=== PATIENT | female | born 1990 | race African-American/Black ===

== ENCOUNTER 2016-05-03 23:54 | Emergency (ER) | payer OTHER ==
[~2016-05-03] VITALS: Ht 157.5 cm; Wt 82.7 kg
[~2016-05-03 23:54] MED LIST: AMOXICILLIN500 MG PO; BACTRIM DS1 TAB PO; FIORICET PO; FLEXERIL PO; FLEXERIL5 M1 PO; HYDROCHLOROT25 MG PO; NAPROSYN375 MG PO; NAPROSYN500 MG PO; PENICILLN VK500 MG PO; TAM75CAP PO
[2016-05-04 00:09] VITALS: BP 131/92
== END 2016-05-04 04:40 | disposition left against medical advice (07) | DRG 951 ==
LOC: ED 23:54 → LWOBS 05-04 04:40
DX: Z91.19 Patient's noncompliance with other medical treatment and regimen (principal)

== ENCOUNTER 2017-05-19 22:37 | Emergency (ER) | payer OTHER ==
[~2017-05-19] VITALS: Ht 157.5 cm; Wt 82.8 kg
[2017-05-20] MEDS ORDERED: BENADRYL 50MG C50 MG PO (01:01)
[2017-05-20 01:29] VITALS: BP 120/82
== END 2017-05-20 01:29 | disposition home or self-care (01) | DRG 607 ==
LOC: ED 22:37
DX: R21 Rash and other nonspecific skin eruption (principal); L29.9 Pruritus, unspecified

== ENCOUNTER 2017-05-30 20:28 | Emergency (ER) | payer OTHER ==
[~2017-05-30] VITALS: Ht 157.5 cm; Wt 82.6 kg
[~2017-05-30 20:28] MED LIST changes: +BENADRYL 50MG C50 MG PO
[2017-05-30] MEDS ORDERED: IMITREX100 MG PO (20:41)
[2017-05-30] MEDS ORDERED: TRAZODONE50 MG PO (20:42)
[2017-05-30 21:26] LABS: URINE BILIRUBIN - DIPSTICK NEGATIVE (NEGATIVE); URINE BLOOD DIPSTICK NEGATIVE (NEGATIVE); URINE COLOR YELLOW; URINE GLUCOSE - DIPSTICK NEGATIVE (NEGATIVE); URINE KETONE NEGATIVE (NEGATIVE); URINE LEUK ESTERASE NEGATIVE (NEGATIVE); URINE NITRITE - DIPSTICK NEGATIVE (Negative); URINE PROTEIN - DIPSTICK NEGATIVE (NEG-TRACE); URINE UROBILINOGEN - DIPSTICK >=8.0 E.U./dL (0.2)
[2017-05-30 21:33] LABS: URINE CLARITY CLEAR
[2017-05-30 21:56] VITALS: BP 110/64
== END 2017-05-30 22:04 | disposition home or self-care (01) | DRG 392 ==
LOC: ED 20:28
PROVIDERS: Emergency Medicine
DX: R11.2 Nausea with vomiting, unspecified (principal); F17.210 Nicotine dependence, cigarettes, uncomplicated; R10.9 Unspecified abdominal pain

== ENCOUNTER 2017-06-12 19:35 | Emergency (ER) | payer OTHER ==
[~2017-06-12] VITALS: Ht 157.5 cm; Wt 82.7 kg
[~2017-06-12 19:35] MED LIST changes: +IMITREX100 MG PO; +TRAZODONE50 MG PO
[2017-06-12] MEDS ORDERED: ULTRAM50 M1 PO (21:36)
[2017-06-12 21:46] VITALS: BP 132/81
== END 2017-06-12 21:46 | disposition home or self-care (01) | DRG 605 ==
LOC: ED 19:35
DX: S50.12XA Contusion of left forearm, initial encounter (principal); S40.022A Contusion of left upper arm, initial encounter; S60.222A Contusion of left hand, initial encounter; V49.49XA Driver injured in collision with other motor vehicles in traffic accident, initial encounter; Y92.410 Unspecified street and highway as the place of occurrence of the external cause

== ENCOUNTER 2017-06-14 21:48 | Emergency (ER) | payer OTHER ==
[~2017-06-14] VITALS: Ht 157.5 cm; Wt 83.0 kg
[~2017-06-14 21:48] MED LIST changes: +ULTRAM50 M1 PO
[2017-06-14] MEDS ORDERED: PERCOCET 5/325M1 TAB PO (22:31)
[2017-06-14 22:37] VITALS: BP 136/76
== END 2017-06-14 22:44 | disposition home or self-care (01) | DRG 556 ==
LOC: ED 21:48
DX: M79.1 Myalgia (principal); F17.210 Nicotine dependence, cigarettes, uncomplicated; I10 Essential (primary) hypertension; V89.2XXA Person injured in unspecified motor-vehicle accident, traffic, initial encounter